=== PATIENT | male | born 1965 | race Caucasian/White ===

== ENCOUNTER 2016-07-12 10:19 | Emergency (ER) | payer BC | END 2016-07-12 12:10 | disposition home or self-care (01) | LOC: ER 10:19 | DX: J44.1 Chronic obstructive pulmonary disease with (acute) exacerbation (principal); F17.210 Nicotine dependence, cigarettes, uncomplicated; Z79.82 Long term (current) use of aspirin; Z88.0 Allergy status to penicillin | CPT/HCPCS: 36415; 87502; 96372 ==